=== PATIENT | male | born 1980 | race African-American/Black ===

== ENCOUNTER 2019-04-30 12:20 | Emergency (ER) | payer SELFPAY ==
[2019-04-30] MEDS ORDERED: Ketorolac Tromethamine 30 MG/ML VIAL ONE (13:11)
--- NOTE | 2019-04-30 13:35 | RAD ---
EXAM: 4 views of the right knee HISTORY: Knee pain COMPARISON: None FINDINGS: No knee effusion is seen. There is no evidence of acute fracture or dislocation. No signifi cant degenerative changes are seen. No soft tissue swelling is present. IMPRESSION: No evidence of acute osseous abnormality.
--- NOTE | 2019-04-30 13:37 | RAD ---
XR Knee Lt 4 View STANDARD: 04/30/2019 1:07 PM CLINICAL INDICATION: Pain, injury COMPARISON: None. FINDINGS: Fracture:No fracture. Arthropathy:None of significance. Mild joint capsular distention. Incidental findings:None of significance. IMPRESSION: 1. No acute osseous abnormality. 2. Mild joint capsular distention.
== END 2019-04-30 14:10 | disposition home or self-care (01) ==
LOC: ERS 12:20
DX: M25.462 Effusion, left knee (principal); M25.561 Pain in right knee
CPT/HCPCS: 96372; J1885